=== PATIENT | female | born 2000 | race Caucasian/White ===

== ENCOUNTER 2023-04-17 22:29 | Emergency (ER) | payer OTHER ==
[~2023-04-17] VITALS: Ht 165.1 cm; Wt 78.0 kg
[2023-04-18 00:15] LABS: BLOOD UREA NITROGEN 9 MG/DL (9-23); CALCIUM LEVEL 9.3 MG/DL (8.5-10.1); CARBON DIOXIDE LEVEL 26 MMOL/L (20-31); CHLORIDE LEVEL 108 MMOL/L (98-107); CREATININE FOR GFR 0.73 MG/DL (0.55-1.30); GLOMERULAR FILTRATION RATE > 60.0 (>60); GLUCOSE, FASTING 97 MG/DL (60-100); POTASSIUM SERUM 4.7 MMOL/L (3.5-5.1); SODIUM LEVEL 138 MMOL/L (136-145)
[2023-04-18 00:16] LABS: BASO # 0.1 10^3/uL (0.0-0.2); BASO % 0.6 % (0.0-1.0); EOS # 0.1 10^3/uL (0.0-0.5); EOS % 1.1 % (0.0-3.0); HEMOGLOBIN 13.3 g/dl (12.0-15.5); LYMPH # 3.6 10^3/uL (1.5-5.0); LYMPH % 41.5 % (24.0-44.0); MEAN CORPUSCULAR HEMOGLOBIN 28.5 pg (27.0-33.0); MEAN CORPUSCULAR HGB CONC 33.3 g/dl (32.0-36.5); MEAN CORPUSCULAR VOLUME 85.8 fl (80.0-96.0); MONO # 0.7 10^3/uL (0.0-0.8); MONO % 8.5 % (2.0-8.0); NEUTROPHILS # 4.1 10^3/uL (1.5-8.5); NEUTROPHILS % 48.1 % (36.0-66.0); PLATELET COUNT, AUTOMATED 211 10^3/uL (150-450); RED BLOOD COUNT 4.66 10^6/uL (4.00-5.40); WHITE BLOOD COUNT 8.6 10^3/uL (4.0-10.0)
[2023-04-18 04:18] LABS: APPEARANCE, URINE CLEAR (CLEAR); BACTERIA, URINE AUTO NEGATIVE (NEGATIVE); BILIRUBIN, URINE AUTO NEGATIVE (NEGATIVE); BLOOD, URINE BLOOD NEGATIVE (NEGATIVE); COLOR, URINE YELLOW (YELLOW); GLUCOSE, URINE (UA) AUTO NEGATIVE (NEGATIVE); KETONE, URINE AUTO NEGATIVE (NEGATIVE); LEUKOCYTE ESTERASE, URINE AUTO NEGATIVE (NEGATIVE); MUCUS, URINE SMALL (NEGATIVE); NITRITE, URINE AUTO NEGATIVE (NEGATIVE); PROTEIN, URINE AUTO NEGATIVE (NEGATIVE); RBC, URINE AUTO 1 /HPF (0-3); SPECIFIC GRAVITY URINE AUTO 1.026 (1.002-1.035); SQUAMOUS EPITHELIAL CELL UR AU 2 /HPF (0-6); WBC, URINE AUTO 1 /HPF (0-3)
[2023-04-18] MEDS ORDERED: METR-265 PO (05:29)
[2023-04-18] MEDS ORDERED: metroNIDAZOLE (FLAGYL) 500MG TABLET PO ONE (05:30)
[2023-04-18 05:50] VITALS: BP 121/69; TEMP 98.2; O2SAT 99
== END 2023-04-18 05:55 | disposition home or self-care (01) ==
LOC: M ED 22:29
DX: O20.0 Threatened abortion (principal); O23.591 Infection of other part of genital tract in pregnancy, first trimester; O46.91 Antepartum hemorrhage, unspecified, first trimester; Z79.899 Other long term (current) drug therapy; Z3A.01 Less than 8 weeks gestation of pregnancy

== ENCOUNTER 2023-05-03 12:32 | Emergency (ER) | payer OTHER ==
[~2023-05-03] VITALS: Ht 165.1 cm; Wt 75.0 kg
[~2023-05-03 12:32] MED LIST: METR-265 PO
[2023-05-03 13:26] LABS: BASO % 0.4 % (0.0-1.0); EOS % 0.2 % (0.0-3.0); HEMATOCRIT 46.1 % (36.0-47.0); HEMOGLOBIN 15.2 g/dl (12.0-15.5); LYMPH # 2.1 10^3/uL (1.5-5.0); LYMPH % 24.7 % (24.0-44.0); MEAN CORPUSCULAR HEMOGLOBIN 28.5 pg (27.0-33.0); MEAN CORPUSCULAR VOLUME 86.5 fl (80.0-96.0); MONO # 0.4 10^3/uL (0.0-0.8); MONO % 4.2 % (2.0-8.0); NEUTROPHILS # 5.8 10^3/uL (1.5-8.5); NEUTROPHILS % 70.3 % (36.0-66.0); PLATELET COUNT, AUTOMATED 240 10^3/uL (150-450); RED BLOOD COUNT 5.33 10^6/uL (4.00-5.40); WHITE BLOOD COUNT 8.3 10^3/uL (4.0-10.0)
[2023-05-03 13:37] LABS: LIPASE 31 U/L (12-53)
[2023-05-03 13:39] LABS: ALBUMIN 4.3 G/DL (3.2-5.2); ALKALINE PHOSPHATASE 62 U/L (46-116); ALT/SGPT 16 U/L (7.0-40); AST/SGOT 12 U/L (<34); BILIRUBIN,DIRECT 0.3 MG/DL (<0.4); BILIRUBIN,TOTAL 0.7 MG/DL (0.3-1.2); BLOOD UREA NITROGEN 10 MG/DL (9-23); CALCIUM LEVEL 9.6 MG/DL (8.5-10.1); CARBON DIOXIDE LEVEL 25 MMOL/L (20-31); CHLORIDE LEVEL 108 MMOL/L (98-107); CREATININE FOR GFR 0.68 MG/DL (0.55-1.30); GLOMERULAR FILTRATION RATE > 60.0 (>60); GLUCOSE, FASTING 95 MG/DL (60-100); POTASSIUM SERUM 4.5 MMOL/L (3.5-5.1); SODIUM LEVEL 140 MMOL/L (136-145); TOTAL PROTEIN 7.4 G/DL (5.7-8.2)
[2023-05-03 14:06] LABS: HCG, SERUM QUANTITATIVE 158836.7 MIU/ML (<4.2)
[2023-05-03] MEDS ORDERED: NS 1,000 ML IV ONE (14:20)
[2023-05-03] MEDS ORDERED: METOCLOPRAMIDE INJ 10MG/2ML VIAL IV ONE (14:20)
[2023-05-03] MEDS ORDERED: REGL10TA6 PO (16:40)
[2023-05-03] MEDS ORDERED: ONDA4TAB6 PO (16:40)
[2023-05-03 16:46] VITALS: BP 115/57; TEMP 97.5; O2SAT 100
== END 2023-05-03 17:00 | disposition home or self-care (01) ==
LOC: M ED 12:32
DX: O21.9 Vomiting of pregnancy, unspecified (principal); Z3A.10 10 weeks gestation of pregnancy
CPT/HCPCS: 76801; 76817; 80048; 80076; 81001; 83690; 84702; 85025; 87086; 93976; 96374; 99284; J2765

== ENCOUNTER → 2023-05-21 | Outpatient (CLI) | payer OTHER ==
[~2023-05-21] MED LIST changes: +ONDA4TAB6 PO; +ONDA8TAB8 PO; +REGL10TA6 PO
[2023-05-21 14:57] LABS: HEMATOCRIT 42.5 % (36.0-47.0); HEMOGLOBIN 14.1 g/dl (12.0-15.5); MEAN CORPUSCULAR HEMOGLOBIN 28.8 pg (27.0-33.0); MEAN CORPUSCULAR HGB CONC 33.2 g/dl (32.0-36.5); MEAN CORPUSCULAR VOLUME 86.7 fl (80.0-96.0); PLATELET COUNT, AUTOMATED 175 10^3/uL (150-450); WHITE BLOOD COUNT 6.7 10^3/uL (4.0-10.0)
[2023-05-21 15:28] LABS: HIV 1&2 SCREEN NEGATIVE (NEGATIVE)
[2023-05-21 15:36] LABS: HEPATITIS C VIRUS ABY INDEX < 0.02 INDEX (<0.8)
== END ==
LOC: M PLALAB 11:37
PROVIDERS: ATTEND Specialist
DX: O09.291 Supervision of pregnancy with other poor reproductive or obstetric history, first trimester (principal); Z3A.13 13 weeks gestation of pregnancy

== ENCOUNTER 2023-05-25 13:17 | Emergency (ER) | payer OTHER ==
[~2023-05-25] VITALS: Ht 165.1 cm; Wt 69.9 kg
[~2023-05-25 13:17] MED LIST changes: -ONDA8TAB8 PO
[2023-05-25 15:29] LABS: BASO % 0.2 % (0.0-1.0); HEMATOCRIT 43.9 % (36.0-47.0); HEMOGLOBIN 15.2 g/dl (12.0-15.5); LYMPH # 1.4 10^3/uL (1.5-5.0); LYMPH % 14.3 % (24.0-44.0); MEAN CORPUSCULAR HEMOGLOBIN 28.8 pg (27.0-33.0); MEAN CORPUSCULAR HGB CONC 34.6 g/dl (32.0-36.5); MEAN CORPUSCULAR VOLUME 83.3 fl (80.0-96.0); MONO # 0.3 10^3/uL (0.0-0.8); MONO % 2.7 % (2.0-8.0); NEUTROPHILS # 7.9 10^3/uL (1.5-8.5); NEUTROPHILS % 82.5 % (36.0-66.0); PLATELET COUNT, AUTOMATED 191 10^3/uL (150-450); RED BLOOD COUNT 5.27 10^6/uL (4.00-5.40); WHITE BLOOD COUNT 9.5 10^3/uL (4.0-10.0)
[2023-05-25 16:06] LABS: LIPASE 32 U/L (12-53)
[2023-05-25 16:08] LABS: ALBUMIN 4.3 G/DL (3.2-5.2); ALKALINE PHOSPHATASE 56 U/L (46-116); ALT/SGPT 14 U/L (7.0-40); AST/SGOT 12 U/L (<34); BILIRUBIN,DIRECT 0.3 MG/DL (<0.4); BILIRUBIN,TOTAL 0.7 MG/DL (0.3-1.2); BLOOD UREA NITROGEN 8 MG/DL (9-23); CALCIUM LEVEL 10.5 MG/DL (8.5-10.1); CARBON DIOXIDE LEVEL 24 MMOL/L (20-31); CHLORIDE LEVEL 106 MMOL/L (98-107); CREATININE FOR GFR 0.61 MG/DL (0.55-1.30); GLOMERULAR FILTRATION RATE > 60.0 (>60); GLUCOSE, FASTING 87 MG/DL (60-100); POTASSIUM SERUM 4.5 MMOL/L (3.5-5.1); SODIUM LEVEL 136 MMOL/L (136-145); TOTAL PROTEIN 7.7 G/DL (5.7-8.2)
[2023-05-25 16:35] LABS: HCG, SERUM QUANTITATIVE 130810.6 MIU/ML (<4.2)
[2023-05-25] MEDS ORDERED: METOCLOPRAMIDE INJ 10MG/2ML VIAL IV ONE (17:25)
[2023-05-25] MEDS ORDERED: NS 1,000 ML IV ONE (17:25)
[2023-05-25] MEDS ORDERED: REGL10TA6 PO (20:14)
[2023-05-25] MEDS ORDERED: FAMOTIDINE 20 MG TAB PO ONE (21:40)
[2023-05-25 21:48] VITALS: BP 128/75; TEMP 98.4; O2SAT 99
== END 2023-05-25 22:05 | disposition home or self-care (01) ==
LOC: M ED 13:17
DX: O21.1 Hyperemesis gravidarum with metabolic disturbance (principal); Z3A.11 11 weeks gestation of pregnancy; Z79.83 Long term (current) use of bisphosphonates; Z79.899 Other long term (current) drug therapy
CPT/HCPCS: 76801; 80048; 80076; 81001; 83690; 84702; 85025; 87086; 96361; 96374; 99283; J2765

== ENCOUNTER 2023-06-03 23:27 | Emergency (ER) | payer OTHER ==
[~2023-06-03] VITALS: Ht 165.1 cm; Wt 71.6 kg
[2023-06-04 00:08] LABS: BASO % 0.5 % (0.0-1.0); EOS # 0.1 10^3/uL (0.0-0.5); EOS % 0.7 % (0.0-3.0); HEMATOCRIT 37.9 % (36.0-47.0); HEMOGLOBIN 12.9 g/dl (12.0-15.5); LYMPH # 2.7 10^3/uL (1.5-5.0); LYMPH % 34.9 % (24.0-44.0); MEAN CORPUSCULAR HEMOGLOBIN 29.3 pg (27.0-33.0); MEAN CORPUSCULAR VOLUME 86.1 fl (80.0-96.0); MONO # 0.5 10^3/uL (0.0-0.8); MONO % 6.1 % (2.0-8.0); NEUTROPHILS # 4.4 10^3/uL (1.5-8.5); NEUTROPHILS % 57.4 % (36.0-66.0); PLATELET COUNT, AUTOMATED 169 10^3/uL (150-450); WHITE BLOOD COUNT 7.7 10^3/uL (4.0-10.0)
[2023-06-04 00:40] LABS: BLOOD UREA NITROGEN 6 MG/DL (9-23); CALCIUM LEVEL 8.7 MG/DL (8.5-10.1); CARBON DIOXIDE LEVEL 22 MMOL/L (20-31); CHLORIDE LEVEL 109 MMOL/L (98-107); GLOMERULAR FILTRATION RATE > 60.0 (>60); GLUCOSE, FASTING 91 MG/DL (60-100); POTASSIUM SERUM 4.2 MMOL/L (3.5-5.1); SODIUM LEVEL 138 MMOL/L (136-145)
[2023-06-04 00:53] LABS: HCG, SERUM QUANTITATIVE 90387.1 MIU/ML (<4.2)
[2023-06-04] MEDS ORDERED: ONDA8TAB8 PO (01:19)
[2023-06-04 02:02] VITALS: BP 127/70; TEMP 98.4; O2SAT 99
== END 2023-06-04 02:05 | disposition home or self-care (01) ==
LOC: M ED 23:27
DX: O26.851 Spotting complicating pregnancy, first trimester (principal); Z3A.13 13 weeks gestation of pregnancy; Z79.83 Long term (current) use of bisphosphonates

== ENCOUNTER 2023-06-10 00:21 | Emergency (ER) | payer OTHER ==
[~2023-06-10] VITALS: Ht 165.1 cm; Wt 70.0 kg
[~2023-06-10 00:21] MED LIST changes: +ONDA8TAB8 PO
[2023-06-10 00:30] VITALS: TEMP 97.5
[2023-06-10 01:16] LABS: BASO % 0.3 % (0.0-1.0); EOS % 0.4 % (0.0-3.0); HEMATOCRIT 39.7 % (36.0-47.0); HEMOGLOBIN 13.9 g/dl (12.0-15.5); LYMPH % 27.7 % (24.0-44.0); MEAN CORPUSCULAR HEMOGLOBIN 29.4 pg (27.0-33.0); MEAN CORPUSCULAR VOLUME 83.9 fl (80.0-96.0); MONO # 0.4 10^3/uL (0.0-0.8); MONO % 5.4 % (2.0-8.0); NEUTROPHILS # 4.9 10^3/uL (1.5-8.5); NEUTROPHILS % 65.9 % (36.0-66.0); PLATELET COUNT, AUTOMATED 188 10^3/uL (150-450); RED BLOOD COUNT 4.73 10^6/uL (4.00-5.40); WHITE BLOOD COUNT 7.4 10^3/uL (4.0-10.0)
[2023-06-10 01:34] LABS: APPEARANCE, URINE HAZY (CLEAR); BACTERIA, URINE AUTO 1+ (NEGATIVE); BILIRUBIN, URINE AUTO NEGATIVE (NEGATIVE); BLOOD, URINE BLOOD 3+ (NEGATIVE); COLOR, URINE YELLOW (YELLOW); GLUCOSE, URINE (UA) AUTO NEGATIVE (NEGATIVE); KETONE, URINE AUTO TRACE mg/dL (NEGATIVE); LEUKOCYTE ESTERASE, URINE AUTO NEGATIVE (NEGATIVE); MUCUS, URINE LARGE (NEGATIVE); NITRITE, URINE AUTO NEGATIVE (NEGATIVE); PROTEIN, URINE AUTO 1+ mg/dL (NEGATIVE); RBC, URINE AUTO 44 /HPF (0-3); SPECIFIC GRAVITY URINE AUTO 1.032 (1.002-1.035); SQUAMOUS EPITHELIAL CELL UR AU 1 /HPF (0-6); WBC, URINE AUTO 4 /HPF (0-3)
[2023-06-10 02:09] LABS: BLOOD UREA NITROGEN < 5 MG/DL (9-23); CALCIUM LEVEL 8.9 MG/DL (8.5-10.1); CARBON DIOXIDE LEVEL 22 MMOL/L (20-31); CHLORIDE LEVEL 104 MMOL/L (98-107); CREATININE FOR GFR 0.67 MG/DL (0.55-1.30); GLOMERULAR FILTRATION RATE > 60.0 (>60); GLUCOSE, FASTING 96 MG/DL (60-100); HCG, SERUM QUANTITATIVE 70357.8 MIU/ML (<4.2); POTASSIUM SERUM 3.5 MMOL/L (3.5-5.1); SODIUM LEVEL 135 MMOL/L (136-145)
[2023-06-10 05:14] VITALS: BP 112/65; O2SAT 100
== END 2023-06-10 05:14 | disposition home or self-care (01) ==
LOC: EDBD 00:21 → M ED 00:21
DX: O20.8 Other hemorrhage in early pregnancy (principal); Z79.83 Long term (current) use of bisphosphonates; Z3A.16 16 weeks gestation of pregnancy

== ENCOUNTER 2023-06-24 19:06 | Emergency (ER) | payer OTHER ==
[~2023-06-24] VITALS: Ht 165.1 cm; Wt 68.2 kg
[2023-06-24 20:19] LABS: BASO % 0.1 % (0.0-1.0); HEMOGLOBIN 16.4 g/dl (12.0-15.5); LYMPH # 1.4 10^3/uL (1.5-5.0); LYMPH % 9.2 % (24.0-44.0); MEAN CORPUSCULAR HGB CONC 34.9 g/dl (32.0-36.5); MEAN CORPUSCULAR VOLUME 83.2 fl (80.0-96.0); MONO # 0.5 10^3/uL (0.0-0.8); MONO % 3.6 % (2.0-8.0); NEUTROPHILS # 12.7 10^3/uL (1.5-8.5); NEUTROPHILS % 86.4 % (36.0-66.0); PLATELET COUNT, AUTOMATED 243 10^3/uL (150-450); RED BLOOD COUNT 5.65 10^6/uL (4.00-5.40); WHITE BLOOD COUNT 14.7 10^3/uL (4.0-10.0)
[2023-06-24 20:46] LABS: ALBUMIN 4.1 G/DL (3.2-5.2); BILIRUBIN,DIRECT 0.3 MG/DL (<0.4); BILIRUBIN,TOTAL 0.8 MG/DL (0.3-1.2); MAGNESIUM LEVEL 1.9 MG/DL (1.8-2.4); TOTAL PROTEIN 7.7 G/DL (5.7-8.2)
[2023-06-24] MEDS: diphenhydrAMINE 50MG/ML VIAL IV STA (21:28)
[2023-06-24] MEDS: METOCLOPRAMIDE INJ 10MG/2ML VIAL IV ONE (21:28)
[2023-06-24] MEDS: NS 1,000 ML IV ONE (21:29)
[2023-06-24] MEDS: PROMETHAZINE 25MG/ML 1ML VIAL IV ONE (21:53)
[2023-06-24 22:44] LABS: RSV AMPLIFICATION NEGATIVE (NEGATIVE)
[2023-06-24] MEDS: MULTIVITAMIN -ADULT INJECTION 10 ML, THIAMINE INJection 100 MG, FOLIC ACID 1 MG in NS 1... IV ONE (23:08)
[2023-06-25] MEDS ORDERED: PROM12.54 PR (02:00)
[2023-06-25 04:00] VITALS: BP 113/71; TEMP 98.7; O2SAT 98
[2023-06-26] MEDS ORDERED: ONDA4TAB6 PO (03:52)
== END 2023-06-25 04:27 | disposition home or self-care (01) ==
LOC: M ED 19:06
DX: O21.9 Vomiting of pregnancy, unspecified (principal)
CPT/HCPCS: 80047; 80076; 83690; 83735; 85025; 87631; 93005; 93041; 96361; 96365; 96366; 96375; 99285; J1200; J2550; J2765; J3411

== ENCOUNTER 2023-06-25 21:42 | Emergency (ER) | payer OTHER ==
[~2023-06-25] VITALS: Ht 165.1 cm; Wt 68.2 kg
[~2023-06-25 21:42] MED LIST changes: +PROM12.54 PR
[2023-06-26 01:33] VITALS: BP 118/78; TEMP 99.5; O2SAT 98
[2023-06-26] MEDS ORDERED: ONDANSETRON 4MG 2ML VIAL As Ordered ONE (02:22)
[2023-06-26] MEDS: ONDANSETRON 4MG 2ML VIAL IV ONE (02:37)
[2023-06-26] MEDS: NS 1,000 ML IV ONE (02:38)
[2023-06-26 02:59] LABS: BASO % 0.2 % (0.0-1.0); EOS % 0.1 % (0.0-3.0); HEMATOCRIT 42.7 % (36.0-47.0); HEMOGLOBIN 15.1 g/dl (12.0-15.5); LYMPH # 2.2 10^3/uL (1.5-5.0); LYMPH % 20.5 % (24.0-44.0); MEAN CORPUSCULAR HEMOGLOBIN 29.6 pg (27.0-33.0); MEAN CORPUSCULAR HGB CONC 35.4 g/dl (32.0-36.5); MEAN CORPUSCULAR VOLUME 83.7 fl (80.0-96.0); MONO # 0.7 10^3/uL (0.0-0.8); MONO % 6.7 % (2.0-8.0); NEUTROPHILS # 7.7 10^3/uL (1.5-8.5); NEUTROPHILS % 71.7 % (36.0-66.0); PLATELET COUNT, AUTOMATED 220 10^3/uL (150-450); WHITE BLOOD COUNT 10.8 10^3/uL (4.0-10.0)
[2023-06-26 03:22] LABS: LIPASE 33 U/L (12-53)
[2023-06-26 03:47] LABS: ALBUMIN 3.7 G/DL (3.2-5.2); ALKALINE PHOSPHATASE 56 U/L (46-116); ALT/SGPT 10 U/L (7.0-40); AST/SGOT 22 U/L (<34); BILIRUBIN,DIRECT 0.2 MG/DL (<0.4); BILIRUBIN,TOTAL 0.9 MG/DL (0.3-1.2); BLOOD UREA NITROGEN 10 MG/DL (9-23); CALCIUM LEVEL 9.4 MG/DL (8.5-10.1); CARBON DIOXIDE LEVEL 20 MMOL/L (20-31); CHLORIDE LEVEL 103 MMOL/L (98-107); CREATININE FOR GFR 0.58 MG/DL (0.55-1.30); GLOMERULAR FILTRATION RATE > 60.0 (>60); GLUCOSE, FASTING 96 MG/DL (60-100); POTASSIUM SERUM 3.9 MMOL/L (3.5-5.1); SODIUM LEVEL 136 MMOL/L (136-145)
[2023-06-26] MEDS ORDERED: ONDA4TAB6 PO (03:52)
[2023-06-26] MEDS: PROMETHAZINE 25MG/ML 1ML VIAL IV ONE (04:10)
== END 2023-06-26 05:00 | disposition home or self-care (01) ==
LOC: M ED 21:42
DX: O21.1 Hyperemesis gravidarum with metabolic disturbance (principal); Z3A.18 18 weeks gestation of pregnancy
CPT/HCPCS: 80048; 80076; 83690; 85025; 96361; 96374; 96375; 99284; J2405; J2550

== ENCOUNTER → 2023-07-12 | Outpatient (CLI) | payer OTHER | LOC: M WHC 14:03 | PROVIDERS: ATTEND Obstetrics & Gynecology | DX: O43.112 Circumvallate placenta, second trimester (principal); Z3A.19 19 weeks gestation of pregnancy ==

== ENCOUNTER → 2023-07-17 | Outpatient (CLI) | payer OTHER | LOC: M PLALAB 08:37 | PROVIDERS: ATTEND Obstetrics & Gynecology | DX: Z34.92 Encounter for supervision of normal pregnancy, unspecified, second trimester (principal) ==

== ENCOUNTER 2023-09-07 19:01 | Outpatient (CLI) | payer OTHER ==
[~2023-09-07] VITALS: Ht 165.1 cm; Wt 71.0 kg
[2023-09-07 19:25] VITALS: BP 110/63; O2SAT 98
[2023-09-07] MEDS ORDERED: PRENTAB9 PO (19:31)
[2023-09-07 20:01] VITALS: BP 100/61
[2023-09-07 20:12] LABS: HEMATOCRIT 34.4 % (36.0-47.0); HEMOGLOBIN 11.6 g/dl (12.0-15.5); MEAN CORPUSCULAR HEMOGLOBIN 29.9 pg (27.0-33.0); MEAN CORPUSCULAR HGB CONC 33.7 g/dl (32.0-36.5); MEAN CORPUSCULAR VOLUME 88.7 fl (80.0-96.0); PLATELET COUNT, AUTOMATED 199 10^3/uL (150-450); RED BLOOD COUNT 3.88 10^6/uL (4.00-5.40); WHITE BLOOD COUNT 9.9 10^3/uL (4.0-10.0)
[2023-09-07 20:26] LABS: INR 1.1; PARTIAL THROMBOPLASTIN TIME 26.6 SECONDS (24.8-34.2); PROTHROMBIN TIME 13.8 SECONDS (12.5-14.5)
[2023-09-07 23:41] VITALS: BP 109/57
== END 2023-09-07 23:54 | disposition home or self-care (01) ==
LOC: M LDO 19:01
PROVIDERS: ATTEND Advanced Practice Midwife
DX: O26.892 Other specified pregnancy related conditions, second trimester (principal); R26.2 Difficulty in walking, not elsewhere classified; W54.1XXA Struck by dog, initial encounter; Y92.9 Unspecified place or not applicable; Y93.9 Activity, unspecified; Z3A.27 27 weeks gestation of pregnancy
CPT/HCPCS: 59025; 76815; 85027; 85384; 85460; 85610; 85730; 86850; 86900; 86901; 86920; G0463

== ENCOUNTER → 2023-09-18 | Outpatient (CLI) | payer OTHER ==
[~2023-09-18] MED LIST changes: +PRENTAB9 PO
== END ==
LOC: M PLALAB 13:08
PROVIDERS: ATTEND Advanced Practice Midwife
DX: Z34.82 Encounter for supervision of other normal pregnancy, second trimester (principal)

== ENCOUNTER 2023-11-22 12:04 | Outpatient (CLI) | payer OTHER ==
[~2023-11-22] VITALS: Ht 165.1 cm; Wt 77.0 kg
[~2023-11-22 12:04] MED LIST changes: +ONDA-282 PO; +ONDA-284 PO; -ONDA4TAB6 PO; -ONDA8TAB8 PO
[2023-11-22] MEDS ORDERED: TUMS500C PO (12:19)
[2023-11-22] MEDS ORDERED: HOME MED LIST COMPLETE! XX SCH (12:20)
[2023-11-22 12:24] VITALS: BP 122/55; O2SAT 99
[2023-11-22 14:49] VITALS: BP 112/65; O2SAT 99
== END 2023-11-22 14:30 | disposition home or self-care (01) ==
LOC: M LDO 12:04
PROVIDERS: ATTEND Obstetrics & Gynecology
DX: O47.03 False labor before 37 completed weeks of gestation, third trimester (principal); Z3A.37 37 weeks gestation of pregnancy
CPT/HCPCS: 59025; G0463

== ENCOUNTER → 2023-11-23 | Outpatient (REF) | payer OTHER ==
[~2023-11-23] MED LIST changes: +TUMS500C PO
== END ==
LOC: M SFHCWAGY 12:49
PROVIDERS: ATTEND Specialist
DX: Z34.83 Encounter for supervision of other normal pregnancy, third trimester (principal)